=== PATIENT | female | born 1995 | race Caucasian/White ===

== ENCOUNTER 2022-03-11 23:27 | Emergency (ER) | payer BC ==
[2022-03-12] MEDS ORDERED: Nitrofurantoin Monohydrate/Macrocrystalline 100 MG Cap PO STA (01:17)
== END 2022-03-12 01:52 | disposition home or self-care (01) ==
LOC: JD.ED 23:27
DX: N39.0 Urinary tract infection, site not specified (principal); E66.9 Obesity, unspecified; Z88.1 Allergy status to other antibiotic agents; Z68.39 Body mass index [BMI] 39.0-39.9, adult
CPT/HCPCS: 81001; 81025; 87086; 87088; 87186; 99282; 99283